=== PATIENT | male | born 1950 | race African-American/Black ===

== ENCOUNTER 2016-09-06 22:02 | Inpatient (IN) | payer OTHER, MEDICARE ==
[~2016-09-06] VITALS: Ht 167.6 cm; Wt 67.0 kg
[~2016-09-06 22:02] MED LIST: ALBU6.7H INH; AMLO10 PO; LEVA750T PO; MEDR4PAK PO; PRIN20TA2 PO; SYMB160A INH
[2016-09-06 22:05] VITALS: BP 176/117; PULSE 123
[2016-09-06 22:10] VITALS: O2SAT 100
[2016-09-06] MEDS ORDERED: LORazepam 2 MG/ML VIAL IV PUSH ONE (22:15)
[2016-09-06] MEDS ORDERED: RESP: ALBUTEROL 2.5 MG/3 ML NEB (SCH) INH (22:15)
[2016-09-06] MEDS ORDERED: SODIUM CHLORIDE 0.9% FLUSH 10 ML FLUSH IVF PRN ×3 (22:15→22:30)
[2016-09-06 22:17] VITALS: BP 176/117; PULSE 123; O2SAT 99
--- NOTE | 2016-09-06 22:26 | PD ---
HPI Chief Complaint: Respiratory Distress Time Seen by Provider: 22:20 Travel History International Travel<30 days: No Contact w/Intl Traveler<30days: No Traveled to known affect area: No History of Present Illness HPI 66-year-old male that presents to the ED for evaluation of respiratory distress. Patient came here by was for evaluation of this. Patient has a chronic history of COPD. Per patient he has been sick for about a week and his been having shortness of breath that has progressively gotten worse until today which got severe. Per patient he took his nebulizer treatments at home 3 with no relief and he felt very short of breath so that is why he called the ambulance. Ambulance found him and he was satting in the 80s. They brought him here and given 3 uvula inhalers as well as Solu-Medrol. His O2 sat it came up to 90s but patient was very tachypneic and anxious secondary to being short of breath. Patient denies any fevers chills or sweats. No other medical complaints. Patient states compliance with his medications. He has no allergies to medication. No other medical problems at this time. Denies any pain of any kind. Per patient his only symptom is shortness of breath. History is initially somewhat difficult because patient is having difficulty breathing but he does node yes or no when I ask him some questions. PFSH Past Medical History Autoimmune Disease: No Cancer: No Cardiovascular Problems: Yes Congestive Heart Failure: No COPD: Yes Coronary Artery Disease: No Diabetes: No Endocrine: No Genitourinary: No Immune Disorder: No Musculoskeletal: No Neurologic: No Psychiatric: No Reproductive: No Respiratory: Yes Immunizations Current: Yes Past Surgical History Abdominal Surgery: No Cardiac Surgery: No Ear Surgery: No Endocrine Surgery: No Eye Surgery: No Genitourinary Surgery: No Oral Surgery: No Thoracic Surgery: No Social History Alcohol Use: No Tobacco Use: No Substance Use: No Allergies-Medications (Allergen,Severity, Reaction): Coded Allergies: No Known Allergies (Verified , 06/27/15) Reported Meds & Prescriptions Reported Meds & Active Scripts Active Levaquin 750 Mg Tab (Levofloxacin) 750 Mg Tab 750 Mg PO DAILY Medrol (Methylprednisolone) 4 Mg Manuel 4 Mg PO DIRECTED Symbicort (Budesonide/Formoterol Fumarate) 60 Puff Aero 2 Puff INH Q12HR 30 Days Reported Proventil Hfa (Albuterol Sulfate) 6.7 Gm Aero 2 Puff INH Q6 * SHAKE WELL BEFORE USE * Norvasc (Amlodipine Besylate) 10 Mg Tab 10 Mg PO DAILY Prinivil (Lisinopril) 20 Mg Tab 20 Mg PO DAILY Review of Systems General / Constitutional: No: Fever, Chills, Weight Gain, Weight Loss, Other Eyes: No: Diploplia, Blurred Vision, Photophobia, Drainage, Redness, Foreign Body Sensation, Pain, Tearing, Blind Spots, Visual changes, Blindness, Other HENT: No: Headaches, Vertigo, Lightheadedness, Sore Throat, Rhinitis, Rhinorrhea, Congestion, Nosebleed, Neck Stiffness, Neck Pain, Masses, Gingival Bleeding, Dental Difficulties, Ear Discharge, Earache, Other Cardiovascular: No: Chest Pain or Discomfort, Palpitations, Irregular Rhythm, Tachycardia, Diaphoresis, Syncope, Dyspnea on exertion, Varicosities, Edema, Cyanosis, Varicosities, Phlebitis, Claudication, Other Respiratory: Positive: Shortness of Breath, Wheezing, No: Cough, Sneezing, Orthopnea, Hemoptysis, Stridor, Night Sweats, Pleuritic Pain, Other Gastrointestinal: No: Nausea, Vomiting, Diarrhea, Abdominal Pain, Hematemesis, Hematochezia, Constipation, Changes in Bowel Habits, Indigestion, Dysphagia, Loss of Appetite, Other Genitourinary: No: Urgency, Frequency, Dysuria, Nocturia, Hematuria, Decreased Urinary Output, Oliguria, Hesitancy, Dribbling, Incontinence, Pelvic Pain, Flank Pain, Dyspareunia, Discharge, Dysmenorrhea, Menorrhagia, Metorrhagia, Vaginal Bleeding, Other Musculoskeletal: No: Myalgias, Arthralgias, Limited ROM, Weakness, Cramping, Edema, Pain, Atrophy, Other Skin: No Rash, No Itching, No Dryness, No Lumps, No Hives, No Change in Pigmentation, No Change in nails, No Alopecia, No Lesions, No Breast Lumps, No Breast Tenderness, No Breast Swelling, No Other Neurologic: No: Weakness, Dizziness, Syncope, Focal Abnormalities, Coordination Problem, Tremor, Ataxia, Headache, Change in Mentation, Slurred Speech, Paresthesia, Incontinence, Seizures, Sensory Disturbance, Other Psychiatric: No: Anxiety, Depression, Suicidal Ideations, Disorder of Thought, Mood Disorder, Substance Abuse, Homicidal Ideation, Other Endocrine: No: Heat Intolerance, Cold Intolerance, Polyuria, Polydipsia, Other Hematologic/Lymphatic: No: Easy Bruising, Lymph Node Enlargement, Other Physical Exam Narrative GENERAL: SKIN: Warm and dry. HEAD: Atraumatic. Normocephalic. EYES: Pupils equal and round. No scleral icterus. No injection or drainage. ENT: No nasal bleeding or discharge. Mucous membranes pink and moist. Tongue is midline. No uvula deviation. NECK: Trachea midline. No JVD. CARDIOVASCULAR: Regular rate and rhythm. No murmurs, S3, S4. RESPIRATORY: Using some accessory muscle use. Severe wheezing heard in all lung burrell. Breath sounds equal bilaterally. GASTROINTESTINAL: Abdomen soft, non-tender, nondistended. Hepatic and splenic margins not palpable. MUSCULOSKELETAL: Extremities without clubbing, cyanosis, or edema. No obvious deformities. Full range of motion of the upper and lower extremities bilaterally. 2+ pulses bilaterally. NEUROLOGICAL: Awake and alert. No obvious cranial nerve deficits. Motor grossly within normal limits. Five out of 5 muscle strength in the arms and legs. Normal speech. PSYCHIATRIC: Appropriate mood and affect; insight and judgment normal. Data Data Last Documented VS Vital Signs Date Time Temp Pulse Resp B/P Pulse Ox O2 Delivery O2 Flow Rate FiO2 09/06/16 22:30 100 60 09/06/16:17 123 176/117 BiPAP Orders Electrocardiogram (09/06/16 22:05) Arterial Blood Gas (Abg) (09/06/16 22:05) Basic Metabolic Panel (Bmp) (09/06/16 22:05) Complete Blood Count With Diff (09/06/16 22:05) Chest, Single Ap (09/06/16 22:05) Ecg Monitoring (09/06/16 22:05) Iv Access Insert/Monitor (09/06/16 22:05) Oximetry (09/06/16 22:05) Oxygen Administration (09/06/16 22:05) Sodium Chloride 0.9% Flush (Ns Flush) (09/06/16 22:15) Lorazepam Inj (Ativan Inj) (09/06/16 22:15) Albuterol Neb (Albuterol Neb) (09/06/16 22:15) Sodium Chloride 0.9% Flush (Ns Flush) (09/06/16 22:30) Albuterol-Ipratropium Neb (Duoneb Neb) (09/06/16 22:30) Creatine Kinase (Cpk) (09/06/16 22:18) Ckmb (Isoenzyme) Profile (09/06/16 22:18) Troponin I (09/06/16 22:18) B-Type Natriuretic Peptide (09/06/16 22:18) Prothrombin Time / Inr (Pt) (09/06/16 22:18) Act Partial Throm Time (Ptt) (09/06/16 22:18) Magnesium (Mg) (09/06/16 22:18) Sodium Chloride 0.9% Flush (Ns Flush) (09/06/16 22:30) Resp Bipap / Cpap Non Invas Vt (09/06/16 22:18) Labs Laboratory Tests Test 09/06/16 09/06/16 22:10 22:20 White Blood Count 8.8 TH/MM3 Red Blood Count 5.04 MIL/MM3 Hemoglobin 16.1 GM/DL Hematocrit 47.4 % Mean Corpuscular Volume 94.1 FL Mean Corpuscular Hemoglobin 31.9 PG Mean Corpuscular Hemoglobin 33.9 % Concent Red Cell Distribution Width 13.4 % Platelet Count 232 TH/MM3 Mean Platelet Volume 7.6 FL Neutrophils (%) (Auto) 56.2 % Lymphocytes (%) (Auto) 26.3 % Monocytes (%) (Auto) 9.2 % Eosinophils (%) (Auto) 7.8 % Basophils (%) (Auto) 0.5 % Neutrophils # (Auto) 4.9 TH/MM3 Lymphocytes # (Auto) 2.3 TH/MM3 Monocytes # (Auto) 0.8 TH/MM3 Eosinophils # (Auto) 0.7 TH/MM3 Basophils # (Auto) 0.0 TH/MM3 CBC Comment DIFF FINAL Differential Comment Prothrombin Time 11.7 SEC Prothromb Time International 1.1 RATIO Ratio Activated Partial 22.8 SEC Thromboplast Time MDM Medical Decision Making Medical Screen Exam Complete: Yes Emergency Medical Condition: Yes Medical Record Reviewed: Yes Differential Diagnosis COPD exacerbation versus hypoxia versus COPD versus pneumonia versus bronchitis Narrative Course 66-year-old male that presents to the ED for evaluation of severe shortness of breath. Patient was properly examined and was found to have signs and symptoms consistent with a severe COPD exacerbation. Patient was initially evaluated by me. Patient was found to be somewhat hypoxic and using accessory muscles. History was difficult because of patient's status. Recommendation at this time is to trial BiPAP as he continues to be very distressed. BiPAP was started and patient did get relief. Patient was given 3 more DuoNeb treatments and labs and imaging were ordered. Patient was reassessed and does feel improved. Patient's O2 status and his physical exam overall improved. My attending Dr. Villanueva was made aware of patient and came and evaluated the patient with me who agrees with plan. Case signed out to my attending pending dispo. Diagnosis Primary Impression: COPD (chronic obstructive pulmonary disease) Qualified Code: J44.1 - Chronic obstructive pulmonary disease with acute exacerbation Jerardo Valverde Sep 06, 2016 22:26
[2016-09-06 22:30] VITALS: O2SAT 100
--- NOTE | 2016-09-06 22:32 | PD ---
Physical Exam Narrative General: The patient is a well-developed well-nourished male, in respiratory distress with tripoding, accessory muscle use, and conversational dyspnea. Head and Neck exam: Head is normocephalic atraumatic. Eyes: EOMI, pupils are equal round and reactive to light. Nose: Midline septum with pink mucous membranes Mouth: Dentition unremarkable. Moist mucus membranes. Posterior oropharynx is not erythematous. No tonsillar hypertrophy. Uvula midline. Airway patent. Neck: No palpable lymphadenopathy. No nuchal rigidity. No thyromegaly. Cardiovascular: Sinus tachycardia in the 120s without murmurs, gallops, or rubs. Lungs: Tripoding with conversational dyspnea on accessory muscle use, expiratory wheezes are audible throughout bilateral lung burrell anteriorly and posteriorly. No rhonchi, no crackles. Abdomen: Soft, without tenderness to palpation in all 4 quadrants of the abdomen. No guarding, rebound, or rigidity. Normal bowel sounds are audible. Extremities: No clubbing, cyanosis, or edema. 2+ pulses in all 4 extremities. Neurologic Exam: Grossly nonfocal. Skin Exam: No rash noted. Intact skin that is warm and dry. Data Data Last Documented VS Vital Signs Date Time Temp Pulse Resp B/P Pulse Ox O2 Delivery O2 Flow Rate FiO2 09/07/16 02:00 94 Nasal Cannula 4.00 09/06/16 22:30 60 09/06/16:17 123 176/117 Orders Electrocardiogram (09/06/16 22:05) Arterial Blood Gas (Abg) (09/06/16 22:05) Basic Metabolic Panel (Bmp) (09/06/16 22:05) Complete Blood Count With Diff (09/06/16 22:05) Chest, Single Ap (09/06/16 22:05) Ecg Monitoring (09/06/16 22:05) Iv Access Insert/Monitor (09/06/16 22:05) Oximetry (09/06/16 22:05) Oxygen Administration (09/06/16 22:05) Sodium Chloride 0.9% Flush (Ns Flush) (09/06/16 22:15) Lorazepam Inj (Ativan Inj) (09/06/16 22:15) Albuterol Neb (Albuterol Neb) (09/06/16 22:15) Sodium Chloride 0.9% Flush (Ns Flush) (09/06/16 22:30) Albuterol-Ipratropium Neb (Duoneb Neb) (09/06/16 22:30) Creatine Kinase (Cpk) (09/06/16 22:18) Ckmb (Isoenzyme) Profile (09/06/16 22:18) Troponin I (09/06/16 22:18) B-Type Natriuretic Peptide (09/06/16 22:18) Prothrombin Time / Inr (Pt) (09/06/16 22:18) Act Partial Throm Time (Ptt) (09/06/16 22:18) Magnesium (Mg) (09/06/16 22:18) Sodium Chloride 0.9% Flush (Ns Flush) (09/06/16 22:30) Resp Bipap / Cpap Non Invas Vt (09/06/16 22:18) CKMB (09/06/16 22:10) CKMB% (09/06/16 22:10) Admit Order (Ed Use Only) (09/07/16 02:03) Labs Laboratory Tests Test 09/06/16 09/06/16 09/06/16 22:10 22:20 22:46 White Blood Count 8.8 TH/MM3 Red Blood Count 5.04 MIL/MM3 Hemoglobin 16.1 GM/DL Hematocrit 47.4 % Mean Corpuscular Volume 94.1 FL Mean Corpuscular Hemoglobin 31.9 PG Mean Corpuscular Hemoglobin 33.9 % Concent Red Cell Distribution Width 13.4 % Platelet Count 232 TH/MM3 Mean Platelet Volume 7.6 FL Neutrophils (%) (Auto) 56.2 % Lymphocytes (%) (Auto) 26.3 % Monocytes (%) (Auto) 9.2 % Eosinophils (%) (Auto) 7.8 % Basophils (%) (Auto) 0.5 % Neutrophils # (Auto) 4.9 TH/MM3 Lymphocytes # (Auto) 2.3 TH/MM3 Monocytes # (Auto) 0.8 TH/MM3 Eosinophils # (Auto) 0.7 TH/MM3 Basophils # (Auto) 0.0 TH/MM3 CBC Comment DIFF FINAL Differential Comment Sodium Level 143 MEQ/L Potassium Level 4.1 MEQ/L Chloride Level 105 MEQ/L Carbon Dioxide Level 29.4 MEQ/L Anion Gap 9 MEQ/L Blood Urea Nitrogen 9 MG/DL Creatinine 1.29 MG/DL Estimat Glomerular Filtration 67 ML/MIN Rate Random Glucose 142 MG/DL Calcium Level 9.2 MG/DL Magnesium Level 2.2 MG/DL Total Creatine Kinase 440 U/L Creatine Kinase MB 4.0 NG/ML Creatine Kinase MB % 0.9 % Troponin I LESS THAN 0.02 NG/ML Prothrombin Time 11.7 SEC Prothromb Time International 1.1 RATIO Ratio Activated Partial 22.8 SEC Thromboplast Time B-Type Natriuretic Peptide 8 PG/ML Blood Gas Puncture Site RT RADIAL Blood Gas Patient Temperature 98.6 Blood Gas HCO3 28 mmol/L Blood Gas Base Excess 2.0 mmol/L Blood Gas Oxygen Saturation 98 % Arterial Blood pH 7.29 Arterial Blood Partial 60 mmHg Pressure CO2 Arterial Blood Partial 256 mmHG Pressure O2 Arterial Blood Oxygen Content 22.7 Vol % Arterial Blood 0.8 % Carboxyhemoglobin Arterial Blood Methemoglobin 0.6 % Blood Gas Hemoglobin 16.1 G/DL Oxygen Delivery Device BiPAP Blood Gas Inspired Oxygen 60 % MDM Medical Record Reviewed: Yes Supervised Visit with DOUG: Yes Interpretation(s) Last Impressions Chest X-Ray 09/06/162204 Signed Impressions: Service Date/Time: Tuesday, September 06, 2016 22:24 - CONCLUSION: No acute cardiopulmonary disease. Tish Molina MD Narrative Course I, Dr. Villanueva, have reviewed the advance practice practitioner's documentation and am in agreement, met with the patient face to face, made the diagnosis, and the medical decision making was done by me. *My assessment and Findings: The patient is a 66-year-old male who presents to [facility] emergency department with a reported history of shortness of breath and wheezing that has been ongoing and intermittent for the last week. Today in spite of using his rescue inhaler and nebulizer machine multiple times symptoms were not improving. The patient called ambulance services and was noted to have O2 saturations of 84% on room air. The patient was started on albuterol nebulizer treatments and had 3 administered en route to this facility. The Patient's O2 saturation reportedly came up into the 90s with this. The patient on arrival was noted to have tripoding, accessory muscle use, increased work of breathing with tachypnea. The patient was initially seen by Kj who started the patient on BiPAP. Please see his complete history and physical. Laboratory studies, chest x-ray was ordered. The patient had DuoNeb 3 ordered. The patient was given Solu-Medrol 125 mg IV 1 prior to arrival by ambulance services. The patient began to improve on the BiPAP. Laboratory studies showed a normal CBC except for a monocytosis at 9.2. CMP is remarkable for a glucose of 142, magnesium 2.2, CPK 440 with 0.9 MB percent, troponin I less than 0.02, BNP is 8 , PT 11.7, INR 1.1, PTT 22.8 on BiPAP. The patient's FiO2 will be weaned from 60%. The patients results were discussed with the patient, including the plan of care. I explained that further testing and/ or monitoring is indicated based on the patients history, examination, and/ or laboratory findings. Therefore, I recommended admission for additional evaluation. The patient expressed understanding and was agreeable with this plan. The patient was admitted to the hospital in guarded condition and [facility] Phys[facility] Communication Physician Communication The patient's case was discussed with Dr. Moran who did agree to admit the patient for further evaluation and treatment at this time. Diagnosis Primary Impression: COPD (chronic obstructive pulmonary disease) Qualified Code: J44.1 - Chronic obstructive pulmonary disease with acute exacerbation Admitting Information Admitting Physician Requests: Admit Scripts Unable to Obtain Active Prescriptions or Reported Meds Aleena Villanueva MD Sep 06, 2016 22:32
[2016-09-06 22:33] LABS: AUTOMATED NEUTROPHIL # 4.9 TH/MM3 (1.8-7.7); BASOPHIL % 0.5 % (0.0-2.0); EOSINOPHIL # 0.7 TH/MM3 (0-0.4); EOSINOPHIL % 7.8 % (0.0-4.0); HEMATOCRIT 47.4 % (39.0-51.0); HEMO FLAGS DIFF FINAL; LYMPH % 26.3 % (9.0-44.0); LYMPHOCYTE # 2.3 TH/MM3 (1.0-4.8); MEAN CELL VOLUME 94.1 FL (80.0-100.0); MEAN CORPUSCULAR HEMOGLOBIN 31.9 PG (27.0-34.0); MEAN CORPUSCULAR HGB CONC 33.9 % (32.0-36.0); MONO % 9.2 % (0.0-8.0); NEUT % 56.2 % (16.0-70.0); PLATELET COUNT 232 TH/MM3 (150-450); RED BLOOD COUNT 5.04 MIL/MM3 (4.50-5.90); RED CELL DISTRIBUTION WIDTH 13.4 % (11.6-17.2); WHITE BLOOD COUNT 8.8 TH/MM3 (4.0-11.0)
[2016-09-06] MEDS: RESP: ALBUTEROL 2.5 MG/IPRATROPIUM 0.5 MG NEB (SCH) INH ×2 (22:33→22:34)
--- NOTE | 2016-09-06 22:36 | RADRPT ---
EXAM DATE/TIME: 09/06/2016 22:24 [facility] COMPARISON: CHEST SINGLE AP, June 27, 2015, 20:46. INDICATIONS : Wheezing, shortness of breath, congestion. MEDICAL HISTORY : Hypertension. Chronic obstructive pulmonary disease. SURGICAL HISTORY : None. ENCOUNTER: Initial ACUITY: 2 days PAIN SCORE: 0/10 LOCATION: Bilateral chest FINDINGS: The lungs are clear without infiltrate, nodule, or mass. There is no appreciable pleural effusion fo r technique. Heart and mediastinum are unremarkable. CONCLUSION: No acute cardiopulmonary disease. Tish Molina MD on September 06, 2016 at 22:34 Board Certified Radiologist. This report was verified electronically.
[2016-09-06 22:43] LABS: APTT (PATIENT) 22.8 SEC (24.3-30.1); INTERNATIONAL NORMALIZED RATIO 1.1 RATIO; PROTHROMBIN TIME - PATIENT 11.7 SEC (9.8-11.6)
[2016-09-06 23:00] LABS: BLOOD GAS CARBOXYHEMOGLOBIN 0.8 % (0-4); BLOOD GAS HCO3 28 mmol/L (22-26); BLOOD GAS METHEMOGLOBIN 0.6 % (0-2); BLOOD GAS O2 HGB SATURATION 98 % (90-100); BLOOD GAS OXYGEN CONTENT 22.7 Vol % (12.0-20.0); BLOOD GAS PCO2 60 mmHg (38-42); BLOOD GAS PO2 256 mmHG (61-120); BLOOD GAS TOTAL HGB 16.1 G/DL (12.0-16.0); TEMP CORR TO 98.6
[2016-09-06 23:01] LABS: CRITICAL VALUE YES
[2016-09-06 23:02] LABS: DRAW SITE RT RADIAL; FIO2 60 %; NUMBER OF ARTERIAL PUNCTURES 1; OXYGEN DEVICE BiPAP; STAT NO; ULNAR PULSE PRESENT
[2016-09-06 23:06] LABS: BICARBONATE 29.4 MEQ/L (21.0-32.0); POTASSIUM 4.1 MEQ/L (3.5-5.1)
[2016-09-07] VITALS (10 sets, daily range): BP systolic 115–155; BP diastolic 60–89; PULSE 84–96; RESP 18–23; TEMP 98.4–98.9; O2SAT 92–97
[2016-09-07 01:29] LABS: CREATINE KINASE 440 U/L (39-308)
[2016-09-07 01:34] LABS: MAGNESIUM 2.2 MG/DL (1.5-2.5)
[2016-09-07] MEDS ORDERED: NALOXONE HCL 0.4 MG/ML AMP IV PRN (02:15)
[2016-09-07] MEDS ORDERED: RESP: ALBUTEROL 2.5 MG/IPRATROPIUM 0.5 MG NEB (PRN) NEB (02:15)
[2016-09-07] MEDS ORDERED: SODIUM CHLORIDE 0.9% FLUSH 10 ML FLUSH IV FLUSH PRN (02:15)
[2016-09-07] MEDS: RESP: ALBUTEROL 2.5 MG/IPRATROPIUM 0.5 MG NEB (SCH) NEB ×4 (03:13→22:00)
--- NOTE | 2016-09-07 03:33 | HHI.HP ---
[facility] Unknown Admission Diagnosis COPD exacerbation, hypoxemia on RA, on Bipap Diagnoses: Chief Complaint: Shortness of breath, cough Travel History International Travel<30 Days: No Contact w/Intl Traveler <30 Da: No Traveled to Known Affected Are: No History of Present Illness History from patient, your physician for medication, and review of medical records. Patient reported that he has been short of breath for the past 3 days of school. However states that this has been progressively getting worse from day to day. He also reports that he was coughing quite a bit and that has been increasing. No fever. She was sputum production. No nausea/vomiting/diarrhea/urinary burning or pain on urination. Denies seeing any blood in his urine or stool. Patient reports that his sputum color is white when he can expectorate. Patient reports he would once in a while have some chest pains and dizziness that this is mostly after having fits of coughing episodes. Apart from the above, patient denies any syncope/focal weakness. Review of Systems Except as stated in HPI: all other systems reviewed are Neg Past Family Social History Past Medical History Hypertension COPDon home oxygen and nebulizer treatments. States that he use home oxygen only as a when necessary. Denies being on BiPAP at home. Past Surgical History no surgeries Reported Medications Patient's medications listed on EMRreviewed. Patient actually states he does not remember the names and doses apart from the fact that he takes nebulizers and that he takes amlodipine 10 mg. Allergies: Coded Allergies: No Known Allergies (Verified , 06/27/15) Family History none that he could recall Social History never used to smoke Physical Exam Vital Signs Vital Signs Date Time Temp Pulse Resp B/P Pulse Ox O2 Delivery O2 Flow Rate FiO2 09/07/16 03:13 95 Nasal Cannula 4.00 09/07/16 02:43 94 18 115/60 97 Nasal Cannula 2 09/07/16 02:00 94 Nasal Cannula 4.00 09/06/16 22:30 100 60 09/06/16 22:17 123 176/117 99 BiPAP 09/06/16 22:17 99 BiPAP 09/06/16 22:10 100 100 09/06/16 22:05 123 176/117 BiPAP Physical Exam GENERAL: This is a thin gentleman, looks much older than his age, on 5 L nasal cannula, not in acute distress. However quite easily gets dyspneic with minimal exertion and talk.saturating 95%. Was off BiPAP about 5 minutes prior to my arrival. SKIN: No rashes, ecchymoses or lesions. Cool and dry. HEAD: Atraumatic. Normocephalic. No temporal or scalp tenderness. EYES: No scleral icterus. No injection or drainage. ENT: Nose without bleeding, purulent drainage or septal hematoma.Airway patent. NECK: Trachea midline. No JVD CARDIOVASCULAR: Regular rate and rhythm without murmurs, gallops, or rubs. RESPIRATORY: Bilateral tight air entry. Bilateral expiratory wheezing. GASTROINTESTINAL: Abdomen soft, non-tender, nondistended. No guarding. MUSCULOSKELETAL: Extremities without clubbing, cyanosis, or edema. No calf tenderness. NEUROLOGICAL: Awake and alert. Motor and sensory grossly within normal limits. Normal speech. Laboratory Laboratory Tests Test 09/06/16 09/06/16 09/06/16 22:10 22:20 22:46 White Blood Count 8.8 Red Blood Count 5.04 Hemoglobin 16.1 Hematocrit 47.4 Mean Corpuscular Volume 94.1 Mean Corpuscular Hemoglobin 31.9 Mean Corpuscular Hemoglobin 33.9 Concent Red Cell Distribution Width 13.4 Platelet Count 232 Mean Platelet Volume 7.6 Neutrophils (%) (Auto) 56.2 Lymphocytes (%) (Auto) 26.3 Monocytes (%) (Auto) 9.2 Eosinophils (%) (Auto) 7.8 Basophils (%) (Auto) 0.5 Neutrophils # (Auto) 4.9 Lymphocytes # (Auto) 2.3 Monocytes # (Auto) 0.8 Eosinophils # (Auto) 0.7 Basophils # (Auto) 0.0 CBC Comment DIFF FINAL Differential Comment Sodium Level 143 Potassium Level 4.1 Chloride Level 105 Carbon Dioxide Level 29.4 Anion Gap 9 Blood Urea Nitrogen 9 Creatinine 1.29 Estimat Glomerular Filtration 67 Rate Random Glucose 142 Calcium Level 9.2 Magnesium Level 2.2 Total Creatine Kinase 440 Creatine Kinase MB 4.0 Creatine Kinase MB % 0.9 Troponin I LESS THAN 0.02 Prothrombin Time 11.7 Prothromb Time International 1.1 Ratio Activated Partial 22.8 Thromboplast Time B-Type Natriuretic Peptide 8 Blood Gas Puncture Site RT RADIAL Blood Gas Patient Temperature 98.6 Blood Gas HCO3 28 Blood Gas Base Excess 2.0 Blood Gas Oxygen Saturation 98 Arterial Blood pH 7.29 Arterial Blood Partial 60 Pressure CO2 Arterial Blood Partial 256 Pressure O2 Arterial Blood Oxygen Content 22.7 Arterial Blood 0.8 Carboxyhemoglobin Arterial Blood Methemoglobin 0.6 Blood Gas Hemoglobin 16.1 Oxygen Delivery Device BiPAP Blood Gas Inspired Oxygen 60 Result Diagram: 09/06/16220909/06/162209 Imaging Last 48 hours Impressions Chest X-Ray 09/06/162204 Signed Impressions: Service Date/Time: Tuesday, September 06, 2016 22:24 - CONCLUSION: No acute cardiopulmonary disease. Tish Molina MD Assessment and Plan Problem List: (1) Respiratory failure ICD Code: J96.90 Status: Acute (2) COPD (chronic obstructive pulmonary disease) ICD Code: J44.9 Status: Acute Assessment and Plan Impression: Acute hypoxemic and hypercapnic respiratory failuresecondary to COPD exacerbation. COPD exacerbation Compensated respiratory acidosis History of hypertension Plan: Patient upon initial arrival to ER was saturating around 84% on room air. Patient was then placed immediately on BiPAP. He was much improved after being on BiPAP. At the time of my exam, he has been off BiPAP for about 5 minutes. Although he is saturating well, he still has quite significant work of breathing. Start patient on scheduled doses of steroids 40 mg IV every 6 hours. Give first dose of Solu-Medrol 125 mg IV 1 dose now. Nebulizers scheduled and when necessary. Resume Norvasc 10 mg by mouth daily for control of high blood pressure. Taper off oxygen to keep O2 sat only at 90% or so. Watch for CO2 retention. This was informed to nursing staff. Would also consult patient's doula Dr. West. GI prophylaxison pantoprazole while on steroids. DVT prophylaxiswith Lovenox. Discussed Condition With Patient, ER physician, patient's nurse Physician Certification 2 Midnight Certification Type: Admission for Inpatient Services Order for Inpatient Services The services are ordered in accordance with Medicare regulations or non- Medicare payer requirements, as applicable. In the case of services not specified as inpatient-only, they are appropriately provided as inpatient services in accordance with the 2-midnight benchmark. Estimated LOS (days): 2 days is the estimated time the patient will need to remain in the hospital, assuming treatment plan goals are met and no additional complications. Post-Hospital Plan: Home Problem Qualifiers (1) COPD (chronic obstructive pulmonary disease): Qualified Code: J44.1 - Chronic obstructive pulmonary disease with acute exacerbation Sylvia Moran MD Sep 07, 2016 03:33
[2016-09-07] MEDS ORDERED: methylPREDNISolone SOD SUCC 125 MG/2 ML VIAL IV PUSH ONE (04:00)
[2016-09-07] MEDS: methylPREDNISolone SOD SUCC 40 MG/1 ML VIAL IV PUSH SCH ×3 (07:12→21:09)
--- NOTE | 2016-09-07 08:03 | HHI.PR ---
Subjective Remarks This is a pleasant 66 y/o Male who came to ER this morning with Shortness of breath, productive cough, No fever, he has Hypertension, COPD on home oxygen and bronchodilators, admitted today with diagnosis of COPD exacerbation, Seen in emergency room, stable has Severe decreased breath sounds, expiratory wheezing no crackles. No nausea, vomit or diarrhea. Objective Vital Signs Date Time Temp Pulse Resp B/P Pulse Ox O2 Delivery O2 Flow Rate FiO2 09/07/16 06:58 84 18 128/77 97 Nasal Cannula 2 09/07/16 03:13 95 Nasal Cannula 4.00 09/07/16 02:43 94 18 115/60 97 Nasal Cannula 2 09/07/16 02:00 94 Nasal Cannula 4.00 09/06/16 22:30 100 60 09/06/16 22:17 123 176/117 99 BiPAP 09/06/16 22:17 99 BiPAP 09/06/16 22:10 100 100 09/06/16 22:05 123 176/117 BiPAP Result Diagram: 09/06/16220909/06/162209 Imaging Last Impressions Chest X-Ray 09/06/162204 Signed Impressions: Service Date/Time: Tuesday, September 06, 2016 22:24 - CONCLUSION: No acute cardiopulmonary disease. Tish Molina MD Procedures No procedures performed Other Results Laboratory Tests Test 09/06/16 09/06/16 09/06/16 22:10 22:20 22:46 White Blood Count 8.8 TH/MM3 Red Blood Count 5.04 MIL/MM3 Hemoglobin 16.1 GM/DL Hematocrit 47.4 % Mean Corpuscular Volume 94.1 FL Mean Corpuscular Hemoglobin 31.9 PG Mean Corpuscular Hemoglobin 33.9 % Concent Red Cell Distribution Width 13.4 % Platelet Count 232 TH/MM3 Mean Platelet Volume 7.6 FL Neutrophils (%) (Auto) 56.2 % Lymphocytes (%) (Auto) 26.3 % Monocytes (%) (Auto) 9.2 % Eosinophils (%) (Auto) 7.8 % Basophils (%) (Auto) 0.5 % Neutrophils # (Auto) 4.9 TH/MM3 Lymphocytes # (Auto) 2.3 TH/MM3 Monocytes # (Auto) 0.8 TH/MM3 Eosinophils # (Auto) 0.7 TH/MM3 Basophils # (Auto) 0.0 TH/MM3 CBC Comment DIFF FINAL Differential Comment Sodium Level 143 MEQ/L Potassium Level 4.1 MEQ/L Chloride Level 105 MEQ/L Carbon Dioxide Level 29.4 MEQ/L Anion Gap 9 MEQ/L Blood Urea Nitrogen 9 MG/DL Creatinine 1.29 MG/DL Estimat Glomerular Filtration 67 ML/MIN Rate Random Glucose 142 MG/DL Calcium Level 9.2 MG/DL Magnesium Level 2.2 MG/DL Total Creatine Kinase 440 U/L Creatine Kinase MB 4.0 NG/ML Creatine Kinase MB % 0.9 % Troponin I LESS THAN 0.02 NG/ML Prothrombin Time 11.7 SEC Prothromb Time International 1.1 RATIO Ratio Activated Partial 22.8 SEC Thromboplast Time B-Type Natriuretic Peptide 8 PG/ML Blood Gas Puncture Site RT RADIAL Blood Gas Patient Temperature 98.6 Blood Gas HCO3 28 mmol/L Blood Gas Base Excess 2.0 mmol/L Blood Gas Oxygen Saturation 98 % Arterial Blood pH 7.29 Arterial Blood Partial 60 mmHg Pressure CO2 Arterial Blood Partial 256 mmHG Pressure O2 Arterial Blood Oxygen Content 22.7 Vol % Arterial Blood 0.8 % Carboxyhemoglobin Arterial Blood Methemoglobin 0.6 % Blood Gas Hemoglobin 16.1 G/DL Oxygen Delivery Device BiPAP Blood Gas Inspired Oxygen 60 % Objective Remarks GENERAL: Moderate respiratory distress. SKIN: No rashes, ecchymoses or lesions. Cool and dry. HEAD: Atraumatic. Normocephalic. No temporal or scalp tenderness. EYES: No scleral icterus. No injection or drainage. ENT: Nose without bleeding, purulent drainage or septal hematoma.Airway patent. NECK: Trachea midline. No JVD CARDIOVASCULAR: Regular rate and rhythm without murmurs, gallops, or rubs. RESPIRATORY: Severe decreased breath sounds bilateral, Expiratory wheezing, no crackles. GASTROINTESTINAL: Abdomen soft, non-tender, nondistended. No guarding. MUSCULOSKELETAL: Extremities without clubbing, cyanosis, or edema. No calf tenderness. NEUROLOGICAL: Awake and alert. Motor and sensory grossly within normal limits. Normal speech. Acute hypoxemic and hypercapnic respiratory failuresecondary to COPD exacerbation. COPD exacerbation Compensated respiratory acidosis History of hypertension Plan: Patient upon initial arrival to ER was saturating around 84% on room air. Patient was then placed immediately on BiPAP. He was much improved after being on BiPAP. At the time of my exam, he has been off BiPAP for about 5 minutes. Although he is saturating well, he still has quite significant work of breathing. Start patient on scheduled doses of steroids 40 mg IV every 6 hours. Give first dose of Solu-Medrol 125 mg IV 1 dose now. Nebulizers scheduled and when necessary. Resume Norvasc 10 mg by mouth daily for control of high blood pressure. Taper off oxygen to keep O2 sat only at 90% or so. Watch for CO2 retention. This was informed to nursing staff. Would also consult patient's customer complaint service supervisor Dr. West. GI prophylaxison pantoprazole while on steroids. DVT prophylaxiswith Lovenox. Discussed Condition With Patient, ER physician, patient's nurse Medications and IVs Current Medications Medications (Trade) Dose Ordered Sig/Jacklyn Route Start Time Stop Time Status Last Admin (NS Flush) 2 ml UNSCH PRN IV FLUSH 09/07/16 02:15 (NS Flush) 2 ml BID IV FLUSH 09/07/16 09:00 (Lovenox Inj) 40 mg Q24H SQ 09/07/16 09:00 (Narcan Inj) 0.4 mg UNSCH PRN IV 09/07/16 02:15 (Norvasc) 10 mg DAILY PO 09/07/16 09:00 (Protonix) 40 mg DAILY PO 09/07/16 09:00 (SoluMEDROL INJ) 40 mg Q6HR IV PUSH 09/07/16 06:00 09/07/16 07:12 A/P Problem List: (1) Hypoxia ICD Code: R09.02 (2) JUDSON (acute kidney injury) ICD Code: N17.9 (3) COPD (chronic obstructive pulmonary disease) ICD Code: J44.9 (4) Respiratory failure ICD Code: J96.90 Assessment and Plan 1. Acute hypoxemic and hypercapnic respiratory failuresecondary to COPD exacerbation. on admission his saturation was 84% initially placed on BiPAP, Improving, started on Steroids, first dose in ER was 125 mg of Solu-Medrol and continue 40 mg q 6 hours will need titration. continue Bronchodilator, mucolytic and Incentive spirometry. continue Oxygen to keep Oxygen saturation over 92%. account review specialist was consulted on admission. 2. Hypertension controlled to continue Home Norvasc GI prophylaxison pantoprazole while on steroids. DVT prophylaxiswith Lovenox. Discharge Planning when recommended so by account review specialist. expected to be in two to three days. Problem Qualifiers (1) COPD (chronic obstructive pulmonary disease): Qualified Code: J44.1 - Chronic obstructive pulmonary disease with acute exacerbation Castro Fraire MD Sep 07, 2016 08:03
[2016-09-07] MEDS: PANTOPRAZOLE SOD 40 MG DELAYED RELEASE TAB PO SCH (08:18)
[2016-09-07] MEDS: SODIUM CHLORIDE 0.9% FLUSH 10 ML FLUSH IV FLUSH SCH ×2 (08:19→21:00)
[2016-09-07] MEDS: ENOXAPARIN SODIUM 40 MG/0.4 ML SYRINGE SQ SCH (08:19)
--- NOTE | 2016-09-07 09:43 | EKG ---
Date Performed: 09/06/2016 Time Performed: 22:12:10 PTAGE: 66 years EKG: SINUS TACHYCARDIA SEPTAL MYOCARDIAL INFARCTION ABNORMAL ECG PREVIOUS TRACING : 06/27/2015 20.39 DOCTOR: Jim Cano Interpretating Date/Time 09/07/2016 09:41:06
[2016-09-07] MEDS ORDERED: AZITHROMYCIN INJ 500 MG in SODIUM CHLOR 0.9% 250 ML INJ 250 ML IV SCH (20:00)
[2016-09-07] MEDS ORDERED: CHLORHEXIDINE GLUCONATE 2 % 1 PACK (2 CLOTHS)(extra cloths) TOP PRN (20:45)
[2016-09-08] VITALS (14 sets, daily range): BP systolic 112–145; BP diastolic 57–90; PULSE 66–99; RESP 21–34; TEMP 98.5–99.2; O2SAT 91–97
[2016-09-08] MEDS: RESP: ALBUTEROL 2.5 MG/IPRATROPIUM 0.5 MG NEB (SCH) NEB ×4 (03:22→20:29)
[2016-09-08] MEDS: CHLORHEXIDINE GLUCONATE 2 % 1 PACK (2 CLOTHS)(taper/protocol) TOP SCH (04:00)
[2016-09-08] MEDS: methylPREDNISolone SOD SUCC 40 MG/1 ML VIAL IV PUSH SCH ×4 (05:41→20:01)
[2016-09-08 06:01] LABS: AUTOMATED NEUTROPHIL # 12.3 TH/MM3 (1.8-7.7); HEMATOCRIT 44.5 % (39.0-51.0); HEMO FLAGS DIFF FINAL; LYMPH % 4.2 % (9.0-44.0); LYMPHOCYTE # 0.6 TH/MM3 (1.0-4.8); MEAN CELL VOLUME 94.5 FL (80.0-100.0); MEAN CORPUSCULAR HEMOGLOBIN 31.1 PG (27.0-34.0); MEAN CORPUSCULAR HGB CONC 32.9 % (32.0-36.0); MONO % 3.1 % (0.0-8.0); NEUT % 92.7 % (16.0-70.0); PLATELET COUNT 191 TH/MM3 (150-450); RED CELL DISTRIBUTION WIDTH 13.2 % (11.6-17.2); WHITE BLOOD COUNT 13.2 TH/MM3 (4.0-11.0)
[2016-09-08 06:14] LABS: BICARBONATE 28.9 MEQ/L (21.0-32.0); POTASSIUM 3.8 MEQ/L (3.5-5.1)
[2016-09-08] MEDS: SODIUM CHLORIDE 0.9% FLUSH 10 ML FLUSH IV FLUSH SCH ×2 (08:33→20:02)
[2016-09-08] MEDS: ENOXAPARIN SODIUM 40 MG/0.4 ML SYRINGE SQ SCH (08:33)
[2016-09-08] MEDS: PANTOPRAZOLE SOD 40 MG DELAYED RELEASE TAB PO SCH (08:33)
[2016-09-08] MEDS ORDERED: SODIUM CHLOR 0.9% 1000 ML INJ 1,000 ML IV ONE (11:45)
[2016-09-08] MEDS: SODIUM CHLOR 0.9% 1000 ML INJ 1,000 ML IV SCH ×2 (11:53→23:40)
--- NOTE | 2016-09-08 12:51 | HHI.PR ---
Subjective Remarks Patient states shows of breath is much improved. Still has some cough Denies chest pain Denies fevers or chills Patient satting 95% on 2 Lcannula. Objective Vitals Vital Signs Date Time Temp Pulse Resp B/P Pulse Ox O2 Delivery O2 Flow Rate FiO2 09/08/16 12:00 99 09/08/16 12:00 98.8 99 24 116/71 92 09/08/16 10:00 84 09/08/16 09:26 95 Nasal Cannula 2.00 09/08/16 08:00 69 09/08/16 08:00 98.7 72 21 123/90 94 09/08/16 06:00 66 09/08/16 04:00 98.7 72 27 124/66 97 09/08/16 04:00 66 09/08/16 02:00 73 09/08/16 00:00 98.5 90 23 125/71 91 09/08/16 00:00 90 09/07/16 23:00 94 Nasal Cannula 3.00 09/07/16 22:00 93 09/07/16 20:00 98.9 84 23 120/63 92 09/07/16 20:00 84 09/07/16 18:36 98.4 92 20 155/89 94 09/07/16 15:49 96 20 149/81 96 Nasal Cannula 3 I/O 09/07/16 09/07/16 09/07/16 09/08/16 09/08/16 09/08/16 07:00 15:00 23:00 07:00 15:00 23:00 Intake Total 310 ml Output Total 200 ml 300 ml Balance 110 ml -300 ml Intake Oral 60 ml IV Total 250 ml Output Urine Total 200 ml 300 ml # Voids 1 # Bowel Movements 1 Result Diagram: 09/08/16 0421 09/08/16 0421 Imaging Last Impressions Renal Ultrasound 09/08/16 0000 Signed Impressions: Service Date/Time: August 14:07 - CONCLUSION: 1. The kidneys are normal in size with no evidence of hydronephrosis. Renal cortex appears of adequate thickness. José Courtney MD Chest X-Ray 09/06/16 2206 Signed Impressions: Service Date/Time: Tuesday, September 06, 2016 22:24 - CONCLUSION: No acute cardiopulmonary disease. Tish Molina MD Objective Remarks GENERAL: NAD, no respiratory distress. Patient sitting in bed eating. SKIN: No rashes, ecchymoses or lesions. Cool and dry. HEAD: Atraumatic. Normocephalic. No temporal or scalp tenderness. EYES: No scleral icterus. No injection or drainage. ENT: Nose without bleeding, purulent drainage or septal hematoma.Airway patent. NECK: Trachea midline. No JVD CARDIOVASCULAR: Regular rate and rhythm without murmurs, gallops, or rubs. RESPIRATORY: Severe decreased breath sounds bilateral, no wheezing, crackles or rhonchi auscultated. GASTROINTESTINAL: Abdomen soft, non-tender, nondistended. No guarding. MUSCULOSKELETAL: Extremities without clubbing, cyanosis, or edema. No calf tenderness. NEUROLOGICAL: Awake and alert. Motor and sensory grossly within normal limits. Normal speech. Medications and IVs Current Medications Medications (Trade) Dose Ordered Sig/Jacklyn Route Start Time Stop Time Status Last Admin (NS Flush) 2 ml UNSCH PRN IV FLUSH 09/07/16 02:15 (NS Flush) 2 ml BID IV FLUSH 09/07/16 09:00 09/08/16 08:33 (Lovenox Inj) 40 mg Q24H SQ 09/07/16 09:00 09/08/16 08:33 (Narcan Inj) 0.4 mg UNSCH PRN IV 09/07/16 02:15 (Norvasc) 10 mg DAILY PO 09/07/16 09:00 09/08/16 08:33 (Protonix) 40 mg DAILY PO 09/07/16 09:00 09/08/16 08:33 Miscellaneous Information Patient in critical care unit? Ass... Q361D XX 09/07/16 20:45 (Chlorhexidine 2% Cloth) 3 pack DAILY@04 TOP 09/08/16 04:00 09/12/16 04:01 09/08/16 04:00 Chlorhexidine Gluconate 3 pack 3 pack UNSCH PRN TOP 09/07/16 20:45 09/12/16 20:39 Sodium Chloride 1,000 ml @ 84 mls/hr [id number] IV 09/08/16 11:45 09/08/16 11:53 (Levaquin 750 Mg Premix Inj) 150 ml @ 100 mls/hr Q24H IV 09/08/16 13:00 09/08/16 12:59 (SoluMEDROL INJ) 40 mg Q8H IV PUSH 09/08/16 20:00 (Symbicort 160-4.5 Inh) 2 puff Q12HR INH 09/08/16 21:00 Urinary Catheter: No Vascular Central Line Catheter: No A/P Problem List: (1) Acute respiratory failure with hypoxia and hypercarbia ICD Code: J96.01 Status: Acute Plan: Patient was admitted to the intensive care unit. Patient initially required BiPAP, which was discontinued. Patient was given 125 minute grams of IV Solu-Medrol in the emergency department , continue IV supplemental and taper dose to 40 mg every 8 hours. Continue bronchodilator therapy, mucolytic and incentive spirometry and continue to provide supplemental oxygen to keep oxygen saturation above 92%. Pulmonary consulted, discussed the case with Dr. Gaspar. I will discontinue azithromycin and start the patient on Levaquin. (2) COPD exacerbation ICD Code: J44.1 Status: Acute Plan: As above (3) JUDSON (acute kidney injury) ICD Code: N17.9 Status: Acute Plan: Patient with likely AKA on chronic kidney disease stage III with baseline creatinine of 1.0. I will start the patient on gentle IV fluids in the proximal normal saline, monitor BUN/creatinine, avoid nephrotoxins and monitor strict input and output.. Assessment and Plan GI prophylaxis: Continue PPI-will switch Pepcid to Protonix. DVT prophylaxis: SCDs, continue Lovenox subcutaneously. Discharge Planning Okay to transfer to the medical floor. Guy Jeffries MD Sep 08, 2016 12:51
[2016-09-08] MEDS: LEVOFLOXACIN 750 MG PREMIX INJ 150 ML IV SCH (12:59)
[2016-09-08] MEDS ORDERED: VANCOMYCIN 500 MG VIAL (FOR ORAL USE ONLY) PO SCH (13:00)
--- NOTE | 2016-09-08 13:18 | MB ---
cc: WESTON WELSH DATE OF CONSULTATION 09/08/2016 REASON FOR CONSULTATION Respiratory distress and COPD. HISTORY OF PRESENT ILLNESS This is a 66-year-old -[place] male with a history of chronic bronchitis who was getting progressively dyspneic with persistent cough and wheezing for the past three to four days. The patient then came to the emergency room and he was coughing up thick mucus and upon arrival, he was in severe respiratory distress and had to be placed on a BiPap mask and was subsequently transferred to the intensive care unit. The patient was given IV Solu-Medrol and he is feeling better, but still has some wheezing and cough and his oxygen saturation is 93% on three liters of oxygen. Denies chest pain. Denies hemoptysis. He has had no significant fevers. PAST HISTORY Has included a history of: 1. Recurrent bronchitis and wheezing 2. History of being on oxygen at home. 3. He has hypertension. 4. Denies other medical illnesses or surgeries. HABITS The patient does not smoke, but was exposed to secondhand smoke for over 30 years. No significant alcohol use. ALLERGIES None listed. FAMILY HISTORY Noncontributory REVIEW OF SYSTEMS The patient has lost weight. He has dizziness, postnasal drip, cough and wheezing. Denies any chest pains. He has urinary frequency. He has some abdominal epigastric distress. No skin lesions. He does have some joint pains in his extremities. PHYSICAL EXAMINATION This is a thinly built elderly -[place] male who is mildly dyspneic at rest. VITAL SIGNS: Blood pressure 120/70, pulse is 90, respirations 22, temperature 98.2. HEENT: Head normocephalic. Pupils are reactive and equal. Tongue is moist. Throat is mildly injected. Nasal mucosa is clear. NECK: Supple without venous distension. No thyromegaly or lymphadenopathy. CHEST: Equal movements with expiratory wheezes throughout both lung burrell. Prolonged expirations with occasional basilar crackles. HEART: The heart sounds were regular S1 and S2. No murmur. No S3 gallop. ABDOMEN: Soft and protuberant without masses or organomegaly or tenderness. Bowel sounds are active. EXTREMITIES: No lesions or edema. Decreased peripheral pulses. Reflexes 1+ with no gross motor deficits. NEUROLOGIC: Cranial nerves are grossly intact. SKIN: No lesions observed. Chest x-ray showed no active pulmonary infiltrates. IMPRESSION 1. Acute respiratory failure resolving. 2. COPD with chronic bronchitis and asthma and acute exacerbation 3. Hypertension PLAN The patient has been started on IV Zithromax 500 mg daily, nebulized DuoNeb solution q.i.d. and he will be placed on Symbicort 160/4.5 two puffs twice a day, Solu-Medrol 40 mg IV q6h will be added and a chest x-ray to be repeated. The patient will have a pulmonary function study when he is clinically stable. Oxygen will be weaned down to two liters. I will follow the case with you Dr. Gray. Thank you for this consultation. MD MANJU Morris/JD /1:04 PM /1:11 PM
--- NOTE | 2016-09-08 17:46 | RADRPT ---
EXAM DATE/TIME: 09/08/2016 14:07 [facility] COMPARISON: No previous studies available for comparison. INDICATIONS : Increased BUN/Creatinine. MEDICAL HISTORY : Chronic obstructive pulmonary disease. Hypertension. SURGICAL HISTORY : None. ENCOUNTER: Initial ACUITY: 1 day PAIN SCORE: 06/28 LOCATION: Bilateral flank MEASUREMENTS: RIGHT KIDNEY: 10.4 x 4.3 x 5.1 cm LEFT KIDNEY: 12.0 x 7.2 x 6.0 cm FINDINGS: RIGHT KIDNEY: Renal cortex is normal in thickness and echotexture. No hydronephrosis, stone, or mass. LEFT KIDNEY: Renal cortex is normal in thickness and echotexture. No hydronephrosis, stone, or mass. BLADDER: Within normal limits given the degree of distension. There does appear to be a small amount of debris seen in the dependent portion of the bladder. CONCLUSION: 1. The kidneys are normal in size with no evidence of hydronephrosis. Renal cortex appears of adequat e thickness. José Courtney MD on September 08, 2016 at 17:43 Board Certified Radiologist. This report was verified electronically.
[2016-09-08] MEDS: BUDESONIDE-FORMOTEROL 160/4.5 MCG INHALER INH SCH (20:01)
[2016-09-09] VITALS (10 sets, daily range): BP systolic 111–140; BP diastolic 58–93; PULSE 65–98; RESP 19–25; TEMP 98–98.7; O2SAT 93–97
[2016-09-09] MEDS: RESP: ALBUTEROL 2.5 MG/IPRATROPIUM 0.5 MG NEB (SCH) NEB ×4 (03:48→21:00)
[2016-09-09] MEDS: CHLORHEXIDINE GLUCONATE 2 % 1 PACK (2 CLOTHS)(taper/protocol) TOP SCH (04:00)
[2016-09-09] MEDS: methylPREDNISolone SOD SUCC 40 MG/1 ML VIAL IV PUSH SCH ×2 (05:37→10:45)
[2016-09-09 06:05] LABS: AUTOMATED NEUTROPHIL # 11.6 TH/MM3 (1.8-7.7); HEMATOCRIT 38.4 % (39.0-51.0); HEMO FLAGS DIFF FINAL; LYMPH % 2.5 % (9.0-44.0); LYMPHOCYTE # 0.3 TH/MM3 (1.0-4.8); MEAN CORPUSCULAR HEMOGLOBIN 31.6 PG (27.0-34.0); NEUT % 95.5 % (16.0-70.0); PLATELET COUNT 192 TH/MM3 (150-450); RED BLOOD COUNT 4.13 MIL/MM3 (4.50-5.90); RED CELL DISTRIBUTION WIDTH 13.2 % (11.6-17.2); WHITE BLOOD COUNT 12.2 TH/MM3 (4.0-11.0)
[2016-09-09 06:29] LABS: ALT (GPT) 20 U/L (12-78); ANION GAP 9 MEQ/L (5-15); AST (GOT) 22 U/L (15-37); BICARBONATE 27.9 MEQ/L (21.0-32.0); BLOOD UREA NITROGEN 20 MG/DL (7-18); CHLORIDE 104 MEQ/L (98-107); GLOMERULAR FILTRATION RATE 71 ML/MIN (>89); MAGNESIUM 2.4 MG/DL (1.5-2.5); SODIUM (NA) 141 MEQ/L (136-145)
[2016-09-09 06:31] LABS: ALKALINE PHOSPHATASE 58 U/L (45-117)
[2016-09-09] MEDS: SODIUM CHLORIDE 0.9% FLUSH 10 ML FLUSH IV FLUSH SCH ×2 (09:00→19:56)
[2016-09-09] MEDS: ENOXAPARIN SODIUM 40 MG/0.4 ML SYRINGE SQ SCH (10:45)
[2016-09-09] MEDS: PANTOPRAZOLE SOD 40 MG DELAYED RELEASE TAB PO SCH (10:46)
[2016-09-09] MEDS: BUDESONIDE-FORMOTEROL 160/4.5 MCG INHALER INH SCH ×2 (10:47→19:57)
[2016-09-09] MEDS: SODIUM CHLOR 0.9% 1000 ML INJ 1,000 ML IV SCH ×2 (11:35→19:57)
--- NOTE | 2016-09-09 13:40 | HHI.PR ---
Subjective Remarks denies cp/sob denies fevers/chills stable vital signs Objective Vitals Vital Signs Date Time Temp Pulse Resp B/P Pulse Ox O2 Delivery O2 Flow Rate FiO2 09/09/16 12:00 98.7 79 24 140/78 95 09/09/16 12:00 79 09/09/16 09:36 94 Nasal Cannula 2.00 09/09/16 08:00 98.6 68 20 118/58 94 09/09/16 06:00 77 09/09/16 04:00 65 09/09/16 04:00 98.5 65 19 111/64 96 09/09/16 02:00 72 09/09/16 00:00 87 09/09/16 00:00 98.3 98 23 137/93 93 09/08/16 22:00 89 09/08/16 20:29 95 Nasal Cannula 2.00 09/08/16 20:00 90 09/08/16 20:00 99.2 90 34 145/78 93 09/08/16 18:00 88 09/08/16 16:00 81 09/08/16 16:00 99.0 81 23 112/57 94 09/08/16 14:00 94 I/O 09/08/16 09/08/16 09/08/16 09/09/16 09/09/16 09/09/16 07:00 15:00 23:00 07:00 15:00 23:00 Intake Total 1394 ml 1150 ml 998 ml Output Total 300 ml 975 ml 650 ml 850 ml Balance -300 ml 419 ml 500 ml 148 ml Intake Oral 1110 ml 572 ml 350 ml IV Total 284 ml 578 ml 648 ml Output Urine Total 300 ml 975 ml 650 ml 850 ml Stool Total 0 ml # Voids 4 1 # Bowel Movements 0 0 0 Result Diagram: 09/09/16 0416 09/09/16 0416 Imaging Last Impressions Renal Ultrasound 09/08/16 0000 Signed Impressions: Service Date/Time: August 14:07 - CONCLUSION: 1. The kidneys are normal in size with no evidence of hydronephrosis. Renal cortex appears of adequate thickness. José Courtney MD Chest X-Ray 09/06/166 Signed Impressions: Service Date/Time: Tuesday, September 06, 2016 22:24 - CONCLUSION: No acute cardiopulmonary disease. Tish Molina MD Objective Remarks GENERAL: NAD, no respiratory distress. Patient sitting in bed eating. SKIN: No rashes, ecchymoses or lesions. Cool and dry. HEAD: Atraumatic. Normocephalic. No temporal or scalp tenderness. EYES: No scleral icterus. No injection or drainage. ENT: Nose without bleeding, purulent drainage or septal hematoma.Airway patent. NECK: Trachea midline. No JVD CARDIOVASCULAR: Regular rate and rhythm without murmurs, gallops, or rubs. RESPIRATORY: Severe decreased breath sounds bilateral, no wheezing, crackles or rhonchi auscultated. GASTROINTESTINAL: Abdomen soft, non-tender, nondistended. No guarding. MUSCULOSKELETAL: Extremities without clubbing, cyanosis, or edema. No calf tenderness. NEUROLOGICAL: Awake and alert. Motor and sensory grossly within normal limits. Normal speech. Medications and IVs Current Medications Medications (Trade) Dose Ordered Sig/Jacklyn Route Start Time Stop Time Status Last Admin (NS Flush) 2 ml UNSCH PRN IV FLUSH 09/07/16 02:15 (NS Flush) 2 ml BID IV FLUSH 09/07/16 09:00 09/08/16 20:02 (Lovenox Inj) 40 mg Q24H SQ 09/07/16 09:00 09/09/16 10:45 (Narcan Inj) 0.4 mg UNSCH PRN IV 09/07/16 02:15 (Norvasc) 10 mg DAILY PO 09/07/16 09:00 09/09/16 10:46 (Protonix) 40 mg DAILY PO 09/07/16 09:00 09/09/16 10:46 Miscellaneous Information Patient in critical care unit? Ass... Q361D XX 09/07/16 20:45 (Chlorhexidine 2% Cloth) 3 pack DAILY@04 TOP 09/08/16 04:00 09/12/16 04:01 09/09/16 04:00 Chlorhexidine Gluconate 3 pack 3 pack UNSCH PRN TOP 09/07/16 20:45 09/12/16 20:39 Sodium Chloride 1,000 ml @ 84 mls/hr [id number] IV 09/08/16 11:45 09/08/16 23:40 (Levaquin 750 Mg Premix Inj) 150 ml @ 100 mls/hr Q24H IV 09/08/16 13:00 09/08/16 12:59 (Symbicort 160-4.5 Inh) 2 puff Q12HR INH 09/08/16 21:00 09/09/16 10:47 (Deltasone) 20 mg BID PO 09/09/16 21:00 UNV Urinary Catheter: No Vascular Central Line Catheter: No A/P Problem List: (1) Acute respiratory failure with hypoxia and hypercarbia ICD Code: J96.01 Status: Acute Plan: Patient was admitted to the intensive care unit. Patient initially required BiPAP, which was discontinued. Patient was given 125 minute grams of IV Solu-Medrol in the emergency department , continue IV supplemental and taper dose to 40 mg every 8 hours. Continue bronchodilator therapy, mucolytic and incentive spirometry and continue to provide supplemental oxygen to keep oxygen saturation above 92%. Pulmonary consulted, discussed the case with Dr. Gaspar. 09/09 Continue Levaquin. DC IV Solumedrol and start on prednisone 20 mg po BID. Appreciate pulmonary recommendations. DC after pulmonary function test done and when cleared by pulmonology. (2) COPD exacerbation ICD Code: J44.1 Status: Acute Plan: As above. Improving. (3) JUDSON (acute kidney injury) ICD Code: N17.9 Status: Acute Plan: Patient with likely JUDSON on chronic kidney disease stage III with baseline creatinine of 1.0. I will start the patient on gentle IV fluids in the proximal normal saline, monitor BUN/creatinine, avoid nephrotoxins and monitor strict input and output. 09/09 Creatine trending down - 1.23 today. renal us negative for hydronephrosis. Assessment and Plan GI prophylaxis: Continue PPI-will switch Pepcid to Protonix. DVT prophylaxis: SCDs, continue Lovenox subcutaneously. Discharge Planning DC pending PFT and pulmonary clearance. Guy Jeffries MD Sep 09, 2016 13:40
--- NOTE | 2016-09-09 17:34 | HHI.PR ---
Subjective Remarks Feels better. Less wheezing and no fever. Objective Vital Signs Date Time Temp Pulse Resp B/P Pulse Ox O2 Delivery O2 Flow Rate FiO2 09/09/16 12:00 98.7 79 24 140/78 95 09/09/16 12:00 79 09/09/16 09:36 94 Nasal Cannula 2.00 09/09/16 08:00 98.6 68 20 118/58 94 09/09/16 06:00 77 09/09/16 04:00 65 09/09/16 04:00 98.5 65 19 111/64 96 09/09/16 02:00 72 09/09/16 00:00 87 09/09/16 00:00 98.3 98 23 137/93 93 09/08/16 22:00 89 09/08/16 20:29 95 Nasal Cannula 2.00 09/08/16 20:00 90 09/08/16 20:00 99.2 90 34 145/78 93 09/08/16 18:00 88 I/O 09/08/16 09/08/16 09/08/16 09/09/16 09/09/16 09/09/16 07:00 15:00 23:00 07:00 15:00 23:00 Intake Total 1394 ml 1150 ml 998 ml Output Total 300 ml 975 ml 650 ml 850 ml Balance -300 ml 419 ml 500 ml 148 ml Intake Oral 1110 ml 572 ml 350 ml IV Total 284 ml 578 ml 648 ml Output Urine Total 300 ml 975 ml 650 ml 850 ml Stool Total 0 ml # Voids 4 1 # Bowel Movements 0 0 0 Result Diagram: 09/09/16 0416 09/09/16 0416 Procedures No procedures performed Objective Remarks This is a thinly built elderly -[place] male who is mildly dyspneic at rest. HEENT: Head normocephalic. Pupils are reactive and equal. Tongue is moist. Throat is mildly injected. Nasal mucosa is clear. NECK: Supple without venous distension. No thyromegaly or lymphadenopathy. CHEST: Equal movements with expiratory wheezes over both lung burrell. Prolonged expirations with occasional basilar crackles. HEART: The heart sounds were regular S1 and S2. No murmur. No S3 gallop. ABDOMEN: Soft and protuberant without masses or organomegaly or tenderness. Bowel sounds are active. EXTREMITIES: No lesions or edema. Decreased peripheral pulses. Reflexes 1+ with no gross motor deficits. NEUROLOGIC: Cranial nerves are grossly intact. SKIN: No lesions observed. Assessment and Plan Assessment and Plan IMPRESSION 1. Acute respiratory failure resolving. 2. COPD with chronic bronchitis and asthma and acute exacerbation 3. Hypertension Plan : 1. Continue Levaquin 750 mg daily. 2. Nebs qid , duoneb. 3. O2 at 2l. 4. PFT in am. 5. Transfer to tele 6. Cont Solumedrol 40 mg IV Q8H Jem Link MD Sep 09, 2016 17:34
[2016-09-09] MEDS: predniSONE 20 MG TAB PO SCH (19:56)
[2016-09-10] VITALS (7 sets, daily range): BP systolic 117–144; BP diastolic 60–76; PULSE 55–83; RESP 20–23; TEMP 98.1–98.5; O2SAT 92–99
[2016-09-10] MEDS: RESP: ALBUTEROL 2.5 MG/IPRATROPIUM 0.5 MG NEB (SCH) NEB ×2 (04:00→08:58)
[2016-09-10] MEDS: CHLORHEXIDINE GLUCONATE 2 % 1 PACK (2 CLOTHS)(taper/protocol) TOP SCH (04:00)
[2016-09-10] MEDS: SODIUM CHLORIDE 0.9% FLUSH 10 ML FLUSH IV FLUSH SCH (09:00)
[2016-09-10] MEDS: predniSONE 20 MG TAB PO SCH (10:12)
[2016-09-10] MEDS: PANTOPRAZOLE SOD 40 MG DELAYED RELEASE TAB PO SCH (10:12)
[2016-09-10] MEDS: BUDESONIDE-FORMOTEROL 160/4.5 MCG INHALER INH SCH (10:12)
[2016-09-10] MEDS: ENOXAPARIN SODIUM 40 MG/0.4 ML SYRINGE SQ SCH (10:13)
[2016-09-10] MEDS: SODIUM CHLOR 0.9% 1000 ML INJ 1,000 ML IV SCH (11:25)
[2016-09-10] MEDS: LEVOFLOXACIN 750 MG PREMIX INJ 150 ML IV SCH ×2 (13:00→13:10)
--- NOTE | 2016-09-10 15:19 | HHI.PR ---
Subjective Remarks Feels Much better. Less wheezing and no fever.Off O2 . Objective Vital Signs Date Time Temp Pulse Resp B/P Pulse Ox O2 Delivery O2 Flow Rate FiO2 09/10/16 12:00 98.5 70 21 135/74 92 09/10/16 11:00 93 21 09/10/16 07:59 98.2 74 20 128/71 96 09/10/16 04:00 55 09/10/16 04:00 98.4 55 20 117/60 99 09/10/16 00:00 72 09/10/16 00:00 98.1 72 23 134/76 97 09/09/16 21:03 97 Nasal Cannula 2.00 09/09/16 20:00 98.0 73 25 133/63 95 09/09/16 20:00 73 09/09/16 16:00 74 09/09/16 16:00 98.7 74 23 139/71 96 I/O 09/09/16 09/09/16 09/09/16 09/10/16 09/10/16 09/10/16 07:00 15:00 23:00 07:00 15:00 23:00 Intake Total 998 ml 2181 ml 912 ml 480 ml Output Total 850 ml 500 ml 800 ml Balance 148 ml 1681 ml 112 ml 480 ml Intake Oral 350 ml 1070 ml 300 ml 480 ml IV Total 648 ml 1111 ml 612 ml Output Urine Total 850 ml 500 ml 800 ml # Voids 5 6 # Bowel Movements 0 0 0 0 Result Diagram: 09/09/16 0416 09/09/16 0416 Procedures No procedures performed Objective Remarks This is a thinly built elderly -Mong[place] male who is mildly dyspneic at rest. HEENT: Head normocephalic. Pupils are reactive and equal. Tongue is moist. Throat is mildly injected. Nasal mucosa is clear. NECK: Supple without venous distension. No thyromegaly or lymphadenopathy. CHEST: Equal movements with Distant breath sounds Prolonged expirations HEART: The heart sounds were regular S1 and S2. No murmur. No S3 gallop. ABDOMEN: Soft and protuberant without masses or organomegaly or tenderness. Bowel sounds are active. EXTREMITIES: No lesions or edema. Decreased peripheral pulses. Reflexes 1+ with no gross motor deficits. NEUROLOGIC: Cranial nerves are grossly intact. SKIN: No lesions observed. Assessment and Plan Assessment and Plan IMPRESSION 1. Acute respiratory failure resolving. 2. COPD with chronic bronchitis and asthma and acute exacerbation 3. Hypertension Plan : 1. Levaquin 750 mg daily X 3 days 2. Nebs BID duoneb. 3. D/C O2 4. Prednisone 20 mg bid and taper over 2 weeks 5.Home anytime 6. D/C Solumedrol Jem Link MD Sep 10, 2016 15:19
[2016-09-10] MEDS ORDERED: ALBUTEROL SULFATE 90 MCG/ACT HFA 8 GM INHALER INH PRN (15:30)
[2016-09-10] MEDS ORDERED: LEVO500T3 PO (15:57)
[2016-09-10] MEDS ORDERED: SYMB160A INH (15:57)
[2016-09-10] MEDS ORDERED: PRED20 PO (15:57)
[2016-09-10] MEDS ORDERED: AMLO10 PO (15:57)
--- NOTE | 2016-09-10 15:59 | HHI.DCPOC ---
Discharge Care Plan Diagnosis: (1) COPD (chronic obstructive pulmonary disease) (2) Hypoxia (3) JUDSON (acute kidney injury) (4) COPD exacerbation (5) Acute respiratory failure with hypoxia and hypercarbia Goals to Promote Your Health * To prevent worsening of your condition and complications * To maintain your health at the optimal level Directions to Meet Your Goals Take your medications as prescribed Follow your dietary instruction Follow activity as directed Keep your appointments as scheduled Take your immunizations and boosters as scheduled If your symptoms worsen call your PCP, if no PCP go to Urgent Care Center or Emergency Room Smoking is Dangerous to Your Health. Avoid second hand smoke Call the 24-hour hour crisis hotline for domestic abuse at Guy Jeffries MD Sep 10, 2016 15:59
--- NOTE | 2016-09-10 16:08 | HHI.DS ---
Discharge Summary Admission Date Sep 07, 2016 at 02:05 Discharge Date: Sep 10, 2016 Admitting Diagnosis COPD exacerbation, hypoxemia on RA, on Bipap (1) Acute respiratory failure with hypoxia and hypercarbia ICD Code: J96.01 Diagnosis: Principal (2) COPD exacerbation ICD Code: J44.1 Diagnosis: Principal (3) JUDSON (acute kidney injury) ICD Code: N17.9 Diagnosis: Principal Procedures sp intubation and mechanical ventilation. Brief History - From Admission History from patient, your physician for medication, and review of medical records. Patient reported that he has been short of breath for the past 3 days of school. However states that this has been progressively getting worse from day to day. He also reports that he was coughing quite a bit and that has been increasing. No fever. She was sputum production. No nausea/vomiting/diarrhea/urinary burning or pain on urination. Denies seeing any blood in his urine or stool. Patient reports that his sputum color is white when he can expectorate. Patient reports he would once in a while have some chest pains and dizziness that this is mostly after having fits of coughing episodes. Apart from the above, patient denies any syncope/focal weakness. CBC/BMP: 09/09/16 0416 09/09/16 0416 Significant Findings Laboratory Tests Test 09/08/16 09/09/16 04:21 04:16 White Blood Count 13.2 TH/MM3 12.2 TH/MM3 (4.0-11.0) (4.0-11.0) Neutrophils (%) (Auto) 92.7 % 95.5 % (16.0-70.0) (16.0-70.0) Lymphocytes (%) (Auto) 4.2 % 2.5 % (9.0-44.0) (9.0-44.0) Neutrophils # (Auto) 12.3 TH/MM3 11.6 TH/MM3 (1.8-7.7) (1.8-7.7) Lymphocytes # (Auto) 0.6 TH/MM3 0.3 TH/MM3 (1.0-4.8) (1.0-4.8) Blood Urea Nitrogen 21 MG/DL (7-18) 20 MG/DL (7-18) Creatinine 1.35 MG/DL (0.60-1.30) Estimat Glomerular Filtration 64 ML/MIN (>89) 71 ML/MIN (>89) Rate Random Glucose 131 MG/DL 131 MG/DL (74-106) (74-106) Red Blood Count 4.13 MIL/MM3 (4.50-5.90) Hematocrit 38.4 % (39.0-51.0) Total Protein 6.0 GM/DL (6.4-8.2) Albumin 3.2 GM/DL (3.4-5.0) Imaging Last Impressions Renal Ultrasound 09/08/16 0000 Signed Impressions: Service Date/Time: August 14:07 - CONCLUSION: 1. The kidneys are normal in size with no evidence of hydronephrosis. Renal cortex appears of adequate thickness. José Courtney MD Chest X-Ray 09/06/16 2205 Signed Impressions: Service Date/Time: Tuesday, September 06, 2016 22:24 - CONCLUSION: No acute cardiopulmonary disease. Tish Molina MD PE at Discharge GENERAL: NAD, no respiratory distress. Patient sitting in bed eating. SKIN: No rashes, ecchymoses or lesions. Cool and dry. HEAD: Atraumatic. Normocephalic. No temporal or scalp tenderness. EYES: No scleral icterus. No injection or drainage. ENT: Nose without bleeding, purulent drainage or septal hematoma.Airway patent. NECK: Trachea midline. No JVD CARDIOVASCULAR: Regular rate and rhythm without murmurs, gallops, or rubs. RESPIRATORY: Decreased air entry with improved air flow when compared to previous days, no wheezing, crackles or rhonchi auscultated. GASTROINTESTINAL: Abdomen soft, non-tender, nondistended. No guarding. MUSCULOSKELETAL: Extremities without clubbing, cyanosis, or edema. No calf tenderness. NEUROLOGICAL: Awake and alert. Motor and sensory grossly within normal limits. Normal speech. Pt update on day of discharge Patient denies cp/sob resolved. Afebrile. Good o2 sat on room air. Wants to go home. AAOx3, lung burrell with decreased air entry but clear. Hospital Course (1) Acute respiratory failure with hypoxia and hypercarbia Patient was admitted to the intensive care unit. Patient initially required BiPAP, which was discontinued. Patient was given 125 minute grams of IV Solu-Medrol in the emergency department , continue IV supplemental and taper dose to 40 mg every 8 hours. Continue bronchodilator therapy, mucolytic and incentive spirometry and continue to provide supplemental oxygen to keep oxygen saturation above 92%. Pulmonary consulted, discussed the case with Dr. French. Patient was discharged home on oral Levaquin 500 mg 5 days and prednisone taper. 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 (2) COPD exacerbation Plan: As above. Improving upon discharge. (3) JUDSON (acute kidney injury) Plan: Patient with likely JUDSON on chronic kidney disease stage III with baseline creatinine of 1.0. Treated with IV fluids the following normal saline, BUN/creatinine monitored in hospital stay, nephrotoxins were avoided, input and output monitored. Renal ultrasound did not show any evidence of hydronephrosis. Creatinine trended down. Patient with good urine output on discharge. GI prophylaxis: continue Protonix. Pt Condition on Discharge: Stable Discharge Disposition: Discharge Home Discharge Time: <= 30 minutes Discharge Instructions DIET: Follow Instructions for: Heart Healthy Diet Activities you can perform: Regular-No Restrictions Follow up Referrals: Pulmonology - 2 Weeks with Jenna West MD New Medications: Levofloxacin (Levofloxacin) 500 Mg Tab 500 MG PO DAILY Infection #5 Ref 0 TAB Prednisone (Prednisone) 20 Mg Tab 40 MG PO DAILY Take 40 mg (2 tablets) daily for 5 days Shortness of Breath #10 Ref 0 TAB Amlodipine (Norvasc) 10 Mg Tab 10 MG PO DAILY Blood Pressure Management #30 TAB Budesonide-Formoterol Inh (Symbicort Inh) 160-4.5 Mcg/Act Aero 2 PUFF INH Q12HR Shortness of Breath #1 INHALER Guy Jeffries MD Sep 10, 2016 16:08
[2016-09-11] MEDS ORDERED: LEVOFLOXACIN 750 MG TAB PO SCH (09:00)
== END 2016-09-10 16:30 | disposition home or self-care (01) | DRG 189 ==
LOC: NEPE 22:02 → NEDA 09-07 02:05 → NEDH 09-07 06:05 → HIMW 09-07 18:15
PROVIDERS: ADMIT Hospitalist; ATTEND Hospitalist
PROC: 5A09357 Assistance with Respiratory Ventilation, Less than 24 Consecutive Hours, Continuous Positive Airway Pressure (ICD-10-PCS; principal; 2016-09-06)
DX: J96.01 Acute respiratory failure with hypoxia (principal); J44.1 Chronic obstructive pulmonary disease with (acute) exacerbation; N17.9 Acute kidney failure, unspecified; E87.2 Acidosis; J96.02 Acute respiratory failure with hypercapnia; N18.3 Chronic kidney disease, stage 3 (moderate); I12.9 Hypertensive chronic kidney disease with stage 1 through stage 4 chronic kidney disease, or unspecified chronic kidney disease; J45.909 Unspecified asthma, uncomplicated; Z99.81 Dependence on supplemental oxygen
CPT/HCPCS: 36600; 71010; 76775; 80048; 80053; 82550; 82552; 82805; 83735; 83880; 84100; 84484; 85025; 85610; 85730; 87641; 93005; 94002; 94640; 94664; J0456; J1650; J1956; J2920; J2930; J7030; J7050; J7512